=== PATIENT | female | born 1985 | race African-American/Black ===

== ENCOUNTER 2017-10-04 19:36 | Emergency (ER) | payer OTHER ==
[~2017-10-04] VITALS: Ht 172.7 cm; Wt 109.0 kg
[2017-10-04 21:11] LABS: APPEARANCE CLOUDY ((CLEAR)); BILIRUBIN NEGATIVE; BLOOD MODERATE; COLOR YELLOW ((YELLOW)); GLUCOSE (STRIP) NEGATIVE; KETONES NEGATIVE; LEUKOCYTES LARGE; NITRITE POSITIVE; PROTEIN (STRIP) 100; SPECIFIC GRAVITY 1.015 (1.000-1.030); UROBILINOGEN 0.2 MG/DL (0.2-1.0)
[2017-10-04 21:38] LABS: EPITHELIAL CELLS 4+ /HPF; MUCUS NONE SEEN /LPF
[2017-10-04 21:39] LABS: BACTERIA 4+ /HPF; UCUL ADDED? YES; WHITE BLOOD CELLS TNTC /HPF (0-5)
[2017-10-04] MEDS ORDERED: MACROBID100 MG PO (22:32)
[2017-10-04] MEDS ORDERED: PREDNISONE10 M1 PO (22:32)
[2017-10-04] MEDS ORDERED: PYRIDIUM200 MG PO (22:40)
[2017-10-04 23:20] VITALS: BP 167/97
== END 2017-10-04 23:23 | disposition home or self-care (01) ==
LOC: EME 19:36 → RME 19:36
DX: N39.0 Urinary tract infection, site not specified (principal); J45.901 Unspecified asthma with (acute) exacerbation; I10 Essential (primary) hypertension; Z87.440 Personal history of urinary (tract) infections
CPT/HCPCS: 81003; 87077; 87086; 87186; 99281; 99284